=== PATIENT | male | born 1985 | race Caucasian/White ===

== ENCOUNTER 2016-04-07 11:45 | Emergency (ER) | payer OTHER ==
[2016-04-07 12:47] VITALS: BP 118/58
[2016-04-07] MEDS ORDERED: Ketorolac INJ* 30 MG/ML 1 ML VIAL IM ONE (13:06)
[2016-04-07] MEDS ORDERED: HYDROcodone/ACETAMIN 5-325 MG* 1 TAB PO ONE (13:06)
--- NOTE | 2016-04-07 13:32 | UC ---
Back Pain HPI - HPI Summary HPI Summary: patient was lifitng a heavy object at the store, heard a pop and could not stand up was placed in a wheelchair and brought here. He is sitting resting mostly on his hands, tender over the spine and low back. no numbness or tingling in lower extremities but cant bear weight. - History of Current Complaint Chief Complaint: UCBackPain Stated Complaint: SEVERE BACK PAIN Time Seen by Provider: 04/07/16 13:01 Hx Obtained From: Patient Onset/Duration: Sudden Onset, Lasting Hours Timing: Constant Severity Initially: Severe Severity Currently: Severe Pain Intensity: 10 Pain Scale Used: 0-10 Numeric Back Pain: Is Discrete @ - lumbar spine Aggravating: Movement, Lifting, Bending, Walking Alleviating: Nothing Associated Signs And Symptoms: Positive: Weakness - Risk Factors AAA Risk Factors: Negative TAD Risk Factors: Negative Cauda Equina Risk Factors: Negative Epidural Abscess Risk Factors: Negative - Allergies/Home Medications Allergies/Adverse Reactions: Allergies Allergy/AdvReac Type Severity Reaction Status Date / Time No Known Allergies Allergy Verified 04/07/16 12:47 Home Medications: Home Medications NK [No Home Medications Reported] 04/07/16 [History Confirmed 04/07/16] PMH/Surg Hx/FS Hx/Imm Hx Previously Healthy: Yes Endocrine History Of: Denies: Diabetes, Thyroid Disease Cardiovascular History Of: Denies: Hypertension, Pacemaker/ICD Respiratory History Of: Denies: COPD, Asthma GI/ History Of: Denies: Ulcer - Surgical History Surgical History: Yes Surgery Procedure, Year, and Place: ORIF RT LEG - Family History Known Family History: Negative: Diabetes, Blood Disorder - Social History Alcohol Use: None Substance Use Type: None, Prescribed Smoking Status (MU): Light Every Day Tobacco Smoker Type: Cigarettes Amount Used/How Often: 1/2 PPD Review of Systems Constitutional: Negative Skin: Negative Eyes: Negative ENT: Negative Respiratory: Negative Cardiovascular: Negative Gastrointestinal: Negative Genitourinary: Negative Motor: Weakness Neurovascular: Negative Musculoskeletal: Arthralgia, Decreased ROM, Myalgia Neurological: Negative Psychological: Negative All Other Systems Reviewed And Are Negative: Yes Physical Exam Triage Information Reviewed: Yes Appearance: Well-Nourished, Ill-Appearing, Pain Distress Vital Signs: Initial Vital Signs Temp 99.3 F 04/07/16 12:40 Pulse 74 04/07/16 12:40 Resp 16 04/07/16 12:40 BP 118/58 04/07/16 12:40 Vital Signs Reviewed: Yes Eye Exam: Normal Eyes: Positive: Conjunctiva Clear ENT Exam: Normal ENT: Positive: Normal ENT inspection, Hearing grossly normal, Pharynx normal, TMs normal Dental Exam: Normal Dental: Positive: Abscess @ Neck: Positive: Supple, Nontender, No Lymphadenopathy Respiratory Exam: Normal Respiratory: Positive: Chest non-tender, Lungs clear, Normal breath sounds Cardiovascular Exam: Normal Cardiovascular: Positive: RRR, No Murmur, Pulses Normal Abdominal Exam: Normal Abdomen Description: Positive: Nontender, No Organomegaly, Soft Bowel Sounds: Positive: Present Musculoskeletal: Positive: No Edema, Strength Limited @ - lower extremitied, ROM Limited @ - hips, low back and knee ext due to pain Neurological Exam: Normal Neurological: Positive: Alert, Muscle Tone Normal Psychological Exam: Normal Skin Exam: Normal Back Pain Course/Dx - Course Course Of Treatment: hx obtained, exam performed, medication given for pain relief. xray obtained, neg for fracture, medications prescribed. educated on proper back exercises. - Differential Dx/Diagnosis Differential Diagnosis/HQI/PQRI: Arthritis, Fracture, Herniated Disc, Neoplasm, Strain, Sprain Provider Diagnoses: lumbar sprain. lumbar strain. pain acute Discharge - Discharge Plan Condition: Stable Disposition: HOME Patient Education Materials: Acute Low Back Pain (ED) Additional Instructions: take the pain medication as needed. I recommend rest for the next 24 hours, attempt to get flat, gradually like we talked about. Follow up if your pain remains acute after 48 hours. here is the link for the exercises that we talked about for low back pain [email or web address]
--- NOTE | 2016-04-07 13:54 | RAD ---
Indication: Severe low back pain radiating into the legs following lifting injury today. Comparison: None. Technique: AP, lateral, and oblique views lumbar sacral spine. Report: Slight LEFT convex curve of the lumbar spine centered at L2-L3. Straightening without spondylolisthesis at any level. Negative for fracture or spondylolysis. Mild disc space narrowing at L5-S1. Mild facet joint osteoarthritis at L4-L5 and L5-S1. Unremarkable paraspinal soft tissue contours. IMPRESSION: Suggestion of mild degenerative spondylosis at L5-S1. Multilevel mild facet joint osteoarthritis.
== END 2016-04-07 14:17 | disposition home or self-care (01) ==
LOC: UCCORT 11:45
DX: S33.5XXA Sprain of ligaments of lumbar spine, initial encounter (principal); S39.012A Strain of muscle, fascia and tendon of lower back, initial encounter; X50.0XXA Overexertion from strenuous movement or load, initial encounter; Y93.89 Activity, other specified; Y92.512 Supermarket, store or market as the place of occurrence of the external cause; F17.210 Nicotine dependence, cigarettes, uncomplicated
CPT/HCPCS: 72110; 96372; 99212; G0463; J1885